=== PATIENT | female | born 1955 | race Caucasian/White ===

== ENCOUNTER 2019-09-22 13:30 | Emergency (ER) | payer OTHER ==
[2019-09-22 13:37] VITALS: BP 171/86; PULSE 72; TEMP 98.2; BMI 37.1
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
== END 2019-09-22 14:28 | disposition home or self-care (01) ==
LOC: JERFT 13:30
DX: S69.92XA Unspecified injury of left wrist, hand and finger(s), initial encounter (principal)
CPT/HCPCS: 73110-TC-LT-FY; 73130-TC-LT-FY; 99283-25